=== PATIENT | male | born 1965 | race Caucasian/White ===

== ENCOUNTER → 2021-08-19 08:46 | Outpatient (CLI) | payer OTHER, SELFPAY ==
[2021-08-19 19:33] LABS: SARS-CoV-2 RNA PCR Negative
== END ==
PROVIDERS: PCP Family Medicine; Visit Provider Nurse Practitioner Family
DX: R68.89 Other general symptoms and signs (principal); Z20.822 Contact with and (suspected) exposure to COVID-19
CPT/HCPCS: C9803; U0003; U0005

== ENCOUNTER 2022-12-02 15:12 | Outpatient (CLI) | payer OTHER, SELFPAY ==
--- NOTE | ~2022-12-02 | CT_ITS ---
EXAMINATION: CT lung screening DATE: 12/02/2022 15:28 INDICATION: Personal history of nicotine dependence, current smoker with 40 pack year history TECHNIQUE: Computed tomography (CT) of the chest was performed without intravenous contrast. The dose -length product (DLP) was 137.25 mGy-cm. 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 COMPARISON: None FINDINGS: There is mild emphysema. Calcified pulmonary nodules are consistent with old granulomatous disease. The lungs are free of acute opacities. No pleural effusion or pneumothorax. No pathologicall y enlarged thoracic lymph nodes are identified. The heart size is normal. Mild bilateral gynecomastia is noted. There is a 2 mm stone of the right kidney. There is mild thoracic spondylosis. IMPRESSION: 1. Lung-RADS category 1: Negative. Continue annual screening with noncontrast low-dose chest CT in 12 months. Reviewed, dictated and finalized at location [facility]. IMPRESSION: 1. Lung-RADS category 1: Negative. Continue annual screening with noncontrast l ow-dose chest CT in 12 months.
== END 2022-12-02 15:13 | disposition home or self-care (01) ==
PROVIDERS: PCP Family Medicine; Visit Provider Nurse Practitioner Family
DX: Z12.2 Encounter for screening for malignant neoplasm of respiratory organs (principal); F17.210 Nicotine dependence, cigarettes, uncomplicated
CPT/HCPCS: 71271

== ENCOUNTER 2023-04-07 00:34 | Day surgery (SDC) | payer OTHER, SELFPAY ==
[2023-03-13 13:49] VITALS: BMI 25.1
[2023-03-27 13:37] VITALS: BMI 25.1
--- NOTE | 2023-04-06 16:13 | PM.HPGS ---
History of Present Illness History of Present Illness Consent: Risks, benefits, and alternatives have been discussed and questions answered. Patient agrees to proceed with procedure. Chief complaint: neoplasm screening Narrative: Noah Carolina is a 57 year old male Referred for colon cancer screening. Review of Systems Review of Systems: All systems reviewed & are unremarkable except as noted in HPI and below PMFSH Past Medical History Medical History BMI 25.0-25.9,adult Encounter for wellness examination in adult Family History Family History Father Malignant neoplasm of prostate Mother IBS (irritable bowel syndrome) Depression Sibling No problems noted. Social History Social History Social History: yes Smoking packs per day: 1 Smoking cigarettes per day: 20.0 Years smoked: 35 Smoking pack-years: 35.00 Smoking status: Current every day smoker Tobacco type: cigarettes Second hand tobacco smoke exposure: No Alcohol intake: current Drinks per week: 3 Alcohol use details: 6 pack a week Substance use: never Substance use type: does not use Lack of Transportation: No Lack of Food: Never True Current Housing: I Have Housing Concerned About Future Housing: No Difficulty Paying Gas/Electric Bills: No Difficulty Paying for Meds: No Currently Unemployed: No Education: High School Diploma/GED Difficulty w/ Childcare or Family Care: No Living arrangements: alone Occupation/Education: occupation Additional occupation/education comments: [employer] Gender identity (if verbalized by the patient): Male Spiritual care concerns: No Meds Home Medications and Allergies Home Medications Medication Instructions Recorded Confirmed Type zolpidem 10 mg tablet 10 mg PO .q HS PRN insomnia #30 10/28/22 04/07/23 Rx tabs Allergies Allergy/AdvReac Type Severity Reaction Status Date / Time No Known Allergies Allergy Verified 04/07/23 10:09 Exam Const: General: alert Orientation/consciousness: patient oriented x3 Resp: Auscultation: clear to auscultation bilaterally Cardio: Rhythm: regular rhythm GI: GI Palp: Yes Soft to palpation and No Tenderness to palpation present (GI) Neuro: General: patient oriented x3 Assessment and Plan Assessment and plan (1) Screening for malignant neoplasm of colon: Code(s): Z12.11 - Encounter for screening for malignant neoplasm of colon Status: Acute Assessment and Plan: Colonoscopy with possible biopsy or polypectomy or cautery or injection of substances.
[2023-04-07 10:10] VITALS: BP 117/73; PULSE 89; RESP 18; TEMP 36.3; O2SAT 99; BMI 24.4
[2023-04-07] MEDS: LACTATED RINGERS 1,000 ML 150 ML IV CONT (10:13)
--- NOTE | 2023-04-07 10:28 | P.PNAN_ITS ---
Anes - Initial Pre Proc Eval Procedure: Operation Date: 04/07/23 11:00 Proposed Procedures p Screening Colonoscopy - Mikel Campbell MD Date/Time: 04/07/23 10:28 Surgeon: Mikel Campbell MD Pre Op Diagnosis: neoplasm screening Patient Data Age: 57 Gender: M Height: 1.78 m Weight: 77.3 kg Last Vital Signs Temp 97.4 F L 04/07/23 10:10 Pulse 89 04/07/23 10:10 Resp 18 04/07/23 10:10 BP 117/73 04/07/23 10:10 Pulse Ox 99 04/07/23 10:10 O2 Del Method Room Air 04/07/23 10:10 Allergies Allergy/AdvReac Type Severity Reaction Status Date / Time No Known Allergies Allergy Verified 04/07/23 10:09 Home Medications Medication Instructions Recorded Confirmed Type zolpidem 10 mg tablet 10 mg PO .q HS PRN insomnia #30 10/28/22 04/07/23 Rx tabs Patient hx anesthesia problems: none Family hx anesthesia problems: none Results Review: All pre-operative results and documents have been reviewed as part of the pre- operative evaluation. [facility] Past Medical History Medical History BMI 25.0-25.9,adult Encounter for wellness examination in adult Family History Family History Father Malignant neoplasm of prostate Mother IBS (irritable bowel syndrome) Depression Sibling No problems noted. Social History Social History Social History: yes Smoking packs per day: 1 Smoking cigarettes per day: 20.0 Years smoked: 35 Smoking pack-years: 35.00 Smoking status: Current every day smoker Tobacco type: cigarettes Second hand tobacco smoke exposure: No Alcohol intake: current Drinks per week: 3 Alcohol use details: 6 pack a week Substance use: never Substance use type: does not use Lack of Transportation: No Lack of Food: Never True Current Housing: I Have Housing Concerned About Future Housing: No Difficulty Paying Gas/Electric Bills: No Difficulty Paying for Meds: No Currently Unemployed: No Education: High School Diploma/GED Difficulty w/ Childcare or Family Care: No Living arrangements: alone Occupation/Education: occupation Additional occupation/education comments: [employer] Gender identity (if verbalized by the patient): Male Spiritual care concerns: No Anes - Eval Final PreProcedure Day of Procedure 04/07/23 10:28 Patient weight: normal Heart: regular rate and rhythm Lungs: clear to auscultation Airway: Mallampati scale class II Neurological: alert and oriented Last oral intake: >/= 8 hours ASA classification: II Emergent: no Anesthetic plan: proceed Anesthesia type and monitoring: general GIVS and standard monitoring Results Review: All pre-operative results and documents have been reviewed as part of the pre- operative evaluation. Informed Consent: The patient's anesthetic plan and its attendant risks and benefits were discuss ed with the patient/family/POA. Questions were solicited and answers provided to the satisfaction of the patient/family/POA.
[2023-04-07] MEDS: SIMETHICONE ORAL SUSPENSION 20 MG/0.3 ML 30 ML BOTTLE 0.6 ML IRRIGATION (11:14)
[2023-04-07 11:22] VITALS: BP 106/69; PULSE 74; RESP 22; O2SAT 95
[2023-04-07 11:32] VITALS: BP 116/70; PULSE 76; RESP 22; O2SAT 96
[2023-04-07 11:42] VITALS: BP 123/79; PULSE 76; RESP 18; O2SAT 99
== END 2023-04-07 11:48 | disposition home or self-care (01) ==
PROVIDERS: PCP Family Medicine; Visit Provider Internal Medicine Gastroenterology
PROC: 0DJD8ZZ Inspection of Lower Intestinal Tract, Via Natural or Artificial Opening Endoscopic (ICD-10-PCS; CPT 45378; principal; 2023-04-07 11:00)
DX: Z12.11 Encounter for screening for malignant neoplasm of colon (principal); K57.30 Diverticulosis of large intestine without perforation or abscess without bleeding; F17.210 Nicotine dependence, cigarettes, uncomplicated
CPT/HCPCS: 45378; J2001; J2704; J7120

== ENCOUNTER → 2023-11-09 11:56 | Outpatient (CLI) | payer OTHER, SELFPAY ==
--- NOTE | ~2023-11-09 | XR_ITS ---
EXAMINATION: [id number] DATE: 11/09/2023 12:20 INDICATION: Anesthesia of skin. TECHNIQUE: 3 views of cervical spine were obtained. COMPARISON: None. FINDINGS: There is 6 degrees dextrocurvature of cervicothoracic spine. Vertebral body heights are nor mal. Intervertebral disc heights are normal. There is multilevel mild facet joint osteoarthritis. The re is multilevel uncovertebral joint osteoarthritis, moderate bilaterally at C5-C6. There is mild brad tral canal stenosis at C5-C6 and C6-C7. No prevertebral soft tissue swelling. IMPRESSION: 1. Mild cervical spondylosis. Reviewed, dictated and finalized at location A. D SUPPORT ENGINEER
--- NOTE | ~2023-11-09 | XR_ITS ---
Left Shoulder Technique: AP and axillary views were obtained. Clinical History: Paresthesia Findings: No fracture or dislocation is seen. Osseous alignment is anatomic. The glenohumeral and acr omioclavicular joint spaces are preserved. Soft tissues are unremarkable. Impression: Unremarkable left shoulder radiographs. Reviewed, dictated and finalized at [facility]. IFIED ORTHOTIST PRACTICE MANAGER Impression: Unremarkable left shoulder radiographs.
== END ==
PROVIDERS: PCP Nurse Practitioner Adult Health; Visit Provider Nurse Practitioner Adult Health
DX: R20.0 Anesthesia of skin (principal); M47.892 Other spondylosis, cervical region
CPT/HCPCS: 72040; 73030

== ENCOUNTER 2023-11-21 14:35 | Outpatient (CLI) | payer OTHER, SELFPAY ==
--- NOTE | ~2023-11-21 | CT_ITS ---
EXAMINATION:CT lung screening DATE: 11/21/2023 14:56 INDICATION: Personal history of nicotine dependence. Smoker who quit 1 year ago with 40 pack year his tory. TECHNIQUE: Computed tomography (CT) of the chest was performed without intravenous contrast. Automate d exposure control and iterative reconstruction technique were employed. The dose-length product (DLP ) was 139.64 mGy-cm. COMPARISON: Chest CT 12/02/2022 FINDINGS: There is mild emphysema. Calcified bilateral lung nodules are consistent with old granuloma tous disease. No pleural effusion. The heart size is normal. No pericardial effusion. There is a 3 mm stone in right kidney. There is mild thoracic spondylosis. There is mild chronic anterior wedge of m ultiple vertebral bodies. IMPRESSION: 1. Lung-RADS category 1: Negative. Continue annual screening with noncontrast low-dose chest CT in 12 months. Reviewed, dictated and finalized at location A. IMPRESSION: 1. Lung-RADS category 1: Negative. Continue annual screening with noncontrast l ow-dose chest CT in 12 months.
== END 2023-11-21 14:36 | disposition home or self-care (01) ==
LOC: ANHIMG 14:39
PROVIDERS: PCP Nurse Practitioner Adult Health; Visit Provider Nurse Practitioner Adult Health
DX: Z12.2 Encounter for screening for malignant neoplasm of respiratory organs (principal); Z87.891 Personal history of nicotine dependence
CPT/HCPCS: 71271

== ENCOUNTER 2023-12-16 10:12 | Outpatient (CLI) | payer OTHER, SELFPAY ==
--- NOTE | ~2023-12-16 | MR_ITS ---
MRI of the cervical spine Clinical History: Cervicalgia, upper extremity paresthesias Technique: Axial T2-weighted and gradient images, and sagittal T1-weighted, T2-weighted, and STIR jimena ges were acquired. Findings: No fracture or subluxation identified. Vertebral bodies maintain normal height and alignmen t. No suspicious bone marrow signal abnormality seen. At C2-C3, there is no disc bulge or herniation. No spinal canal stenosis, cord compression, or neural foraminal narrowing. At C3-C4, there is no disc bulge or herniation. No spinal canal stenosis or cord compression. There i s moderate right neural foraminal narrowing with bilateral facet arthropathy. Left neural foramen pro bably preserved. At C4-C5, disc osteophyte complex results in mild to moderate canal stenosis and mild cord compressio n. There is bilateral neural foraminal narrowing, left worse than right, with bilateral facet arthrop athy. At C5-C6, disc osteophyte complex results in moderate canal stenosis and cord compression. There is b ilateral neural foraminal narrowing with associated bilateral facet arthropathy. At and C6-C7, there is mild disc osteophyte complex. There is mild canal stenosis and mild to moderat e cord compression, particularly on the left side. There is bilateral neural foraminal narrowing, lef t worse than right, with mild facet arthropathy. No abnormal signal seen in the spinal cord. Paravertebral soft tissues are unremarkable. Impression: Severe degenerative spondylosis, as above. There is canal stenosis and cord compression at C4-C5, C5- C6, and C6-C7, with multilevel neural foraminal narrowing. Reviewed, dictated and finalized at [facility]. Impression: Severe degenerative spondylosis, as above. There is canal stenosis and cord com pression at C4-C5, C5-C6, and C6-C7, with multilevel neural foraminal narrowing .
== END 2023-12-16 10:13 ==
LOC: MICIMG 10:13
PROVIDERS: PCP Nurse Practitioner Adult Health; Visit Provider Neurological Surgery
DX: M43.02 Spondylolysis, cervical region (principal); M48.02 Spinal stenosis, cervical region; M50.021 Cervical disc disorder at C4-C5 level with myelopathy; M50.022 Cervical disc disorder at C5-C6 level with myelopathy; M50.023 Cervical disc disorder at C6-C7 level with myelopathy
CPT/HCPCS: 72141